=== PATIENT | male | born 1985 | race Caucasian/White ===

== ENCOUNTER → 2023-05-30 14:18 | Outpatient (CLI) | payer OTHER, SELFPAY ==
--- NOTE | ~2023-05-30 | XR_ITS ---
XR knee RT min 4V DATE: 05/30/2023 14:51 INDICATION: Right knee pain TECHNIQUE: Stem and standing AP, PA and lateral views COMPARISON: None FINDINGS: Prominent superior pole patellar enthesopathy at the quadriceps tendon insertion. No fracture or dislocation or joint effusion. No periosteal reaction or bone destruction. No radiopaq ue interarticular loose body or chondrocalcinosis. There is mild periarticular spurring at the lateral compartment consistent with mild osteoarthritis. IMPRESSION: Mild lateral compartment osteoarthritis Superior pole patellar enthesopathy Reviewed, dictated and finalized at location L. [employer]
== END ==
PROVIDERS: PCP Nurse Practitioner Family; Visit Provider Nurse Practitioner Family
DX: M17.11 Unilateral primary osteoarthritis, right knee (principal)
CPT/HCPCS: 73564